=== PATIENT | female | born 1995 | race Caucasian/White ===

== ENCOUNTER 2020-07-23 05:31 | Inpatient (IN) | payer OTHER ==
[~2020-07-23] VITALS: Ht 170.2 cm; Wt 105.2 kg
[~2020-07-23 05:31] MED LIST: FERROUS SULFAT325 M2 PO; FLAGYL500 MG PO; IRON325 M1 PO; LEVAQUIN750 MG PO; NORCO 5-325 TA1 EACH PO; ZOFRAN4 MG PO
[2020-07-23 06:06] LABS: HEMOGLOBIN 10.4 gm/dl (12.3-15.3); RED BLOOD COUNT 3.42 M/UL (4.00-5.10); WHITE BLOOD COUNT 6.2 K/UL (4.5-11.0)
[2020-07-23] MEDS ORDERED: PRENATAL TABLE1 EAC1 PO (06:59)
== END 2020-07-25 14:45 | disposition home or self-care (01) | DRG 787 ==
LOC: OB 05:31
PROVIDERS: ADMIT Obstetrics & Gynecology
PROC: 6A550ZT Pheresis of Cord Blood Stem Cells, Single (ICD-10-PCS; 2020-07-23)
PROC: 10D00Z1 Extraction of Products of Conception, Low, Open Approach (ICD-10-PCS; principal; 2020-07-23 07:30)
PROC: 3E0234Z Introduction of Serum, Toxoid and Vaccine into Muscle, Percutaneous Approach (ICD-10-PCS; 2020-07-24)
DX: O36.5930 Maternal care for other known or suspected poor fetal growth, third trimester, not applicable or unspecified (principal); O44.03 Complete placenta previa NOS or without hemorrhage, third trimester; O34.211 Maternal care for low transverse scar from previous cesarean delivery; N85.8 Other specified noninflammatory disorders of uterus; Z3A.37 37 weeks gestation of pregnancy; Z37.0 Single live birth; O99.02 Anemia complicating childbirth; D50.9 Iron deficiency anemia, unspecified; O99.214 Obesity complicating childbirth; Z87.891 Personal history of nicotine dependence; Z23 Encounter for immunization
CPT/HCPCS: 81001; 82800; 85014; 85018; 85025; 86850; 86900; 86901; 90715; C9113; J0690; J1885; J2210; J2274; J2405; J2590; J3010; J7120

== ENCOUNTER 2021-10-20 11:46 | Emergency (ER) | payer OTHER ==
[~2021-10-20 11:46] MED LIST changes: +PRENATAL TABLE1 EAC1 PO
[2021-10-20 12:47] LABS: HEMOGLOBIN 9.9 gm/dl (12.3-15.3); RED BLOOD COUNT 3.85 M/UL (4.00-5.10); WHITE BLOOD COUNT 3.9 K/UL (4.5-11.0)
[2021-10-20 13:08] LABS: BUN/CREATININE RATIO 10 (0-10)
[2021-10-20] MEDS ORDERED: CEPHALEXIN500 M1 PO (14:11)
== END 2021-10-20 14:50 | disposition home or self-care (01) ==
LOC: ER1 11:46
PROVIDERS: Physician Assistant
DX: O23.42 Unspecified infection of urinary tract in pregnancy, second trimester (principal); O99.282 Endocrine, nutritional and metabolic diseases complicating pregnancy, second trimester; Z88.1 Allergy status to other antibiotic agents; Z3A.15 15 weeks gestation of pregnancy
CPT/HCPCS: 80053; 81001; 83690; 85025; 87086; 99284

== ENCOUNTER → 2021-12-30 | Outpatient (CLI) | payer OTHER ==
[~2021-12-30] VITALS: Ht 170.2 cm; Wt 101.6 kg
[~2021-12-30] MED LIST changes: +CEPHALEXIN500 M1 PO
== END ==
LOC: OPSV 12-18 13:00
DX: O99.012 Anemia complicating pregnancy, second trimester (principal); Z3A.00 Weeks of gestation of pregnancy not specified
CPT/HCPCS: 96365; J1756

== ENCOUNTER → 2022-01-09 | Outpatient (CLI) | payer OTHER | LOC: OPSV 14:00 | DX: O99.012 Anemia complicating pregnancy, second trimester (principal) | CPT/HCPCS: 96365; J1756 ==

== ENCOUNTER → 2022-01-16 | Outpatient (CLI) | payer OTHER ==
[~2022-01-16] VITALS: Ht 170.2 cm; Wt 101.6 kg
== END ==
LOC: OPSV 14:35
DX: O99.012 Anemia complicating pregnancy, second trimester (principal); D64.9 Anemia, unspecified; Z3A.00 Weeks of gestation of pregnancy not specified
CPT/HCPCS: 96365; J1756

== ENCOUNTER → 2022-02-25 | Outpatient (CLI) | payer OTHER ==
[~2022-02-25] VITALS: Ht 170.2 cm; Wt 101.6 kg
== END ==
LOC: OPSV 12:00
DX: O99.012 Anemia complicating pregnancy, second trimester (principal); Z3A.00 Weeks of gestation of pregnancy not specified
CPT/HCPCS: 96365; J1756

== ENCOUNTER 2022-03-31 13:11 | Outpatient (CLI) | payer OTHER ==
[2022-03-31 13:44] LABS: HEMOGLOBIN 10.2 gm/dl (12.3-15.3); RED BLOOD COUNT 3.44 M/UL (4.00-5.10); WHITE BLOOD COUNT 4.3 K/UL (4.5-11.0)
[2022-04-01] MEDS ORDERED: FEROSUL325 MG PO (06:09)
[2022-04-01] MEDS ORDERED: IBUPROFEN800 MG PO (14:28)
[2022-04-01] MEDS ORDERED: HYDROCODON-ACE1 EAC2 PO (14:28)
[2022-04-01] MEDS ORDERED: COLACE 100MG C100 MG PO (14:28)
== END 2022-03-31 14:52 | disposition home or self-care (01) ==
LOC: GENOP 13:11
PROVIDERS: Obstetrics & Gynecology
DX: Z01.812 Encounter for preprocedural laboratory examination (principal)
CPT/HCPCS: 81001; 85025

== ENCOUNTER 2022-04-01 05:26 | Inpatient (IN) | payer OTHER ==
[~2022-04-01] VITALS: Ht 170.2 cm; Wt 104.3 kg
[2022-04-01] MEDS ORDERED: FEROSUL325 MG PO (06:09)
[2022-04-01] MEDS ORDERED: COLACE 100MG C100 MG PO (14:28)
[2022-04-01] MEDS ORDERED: HYDROCODON-ACE1 EAC2 PO (14:28)
[2022-04-01] MEDS ORDERED: IBUPROFEN800 MG PO (14:28)
[2022-04-02 05:54] LABS: HEMOGLOBIN 9.6 gm/dl (12.3-15.3)
[2022-04-02] MEDS ORDERED: FERROUS SULFAT325 MG PO (11:26)
== END 2022-04-02 18:21 | disposition home or self-care (01) | DRG 787 ==
LOC: OB 05:26
PROVIDERS: ADMIT Obstetrics & Gynecology
PROC: 4A1HXCZ Monitoring of Products of Conception, Cardiac Rate, External Approach (ICD-10-PCS; 2022-04-01)
PROC: 3E0234Z Introduction of Serum, Toxoid and Vaccine into Muscle, Percutaneous Approach (ICD-10-PCS; 2022-04-01)
PROC: 10D00Z1 Extraction of Products of Conception, Low, Open Approach (ICD-10-PCS; principal; 2022-04-01 07:30)
DX: O34.211 Maternal care for low transverse scar from previous cesarean delivery (principal); D62 Acute posthemorrhagic anemia; O99.02 Anemia complicating childbirth; Z28.310 Unvaccinated for COVID-19; Z37.0 Single live birth; Z3A.39 39 weeks gestation of pregnancy; Z88.8 Allergy status to other drugs, medicaments and biological substances; Z87.891 Personal history of nicotine dependence; Z83.2 Family history of diseases of the blood and blood-forming organs and certain disorders involving the immune mechanism; Z82.49 Family history of ischemic heart disease and other diseases of the circulatory system; Z80.3 Family history of malignant neoplasm of breast; Z83.3 Family history of diabetes mellitus; Z81.8 Family history of other mental and behavioral disorders; Z90.49 Acquired absence of other specified parts of digestive tract; Z23 Encounter for immunization
CPT/HCPCS: 36415; 82800; 85014; 85018; 86850; 86900; 86901; 90471; C9113; J0690; J1170; J2405; J2590